=== PATIENT | male | born 1980 | race Two or more races ===

== ENCOUNTER 2018-11-07 04:22 | Emergency (ER) | payer SELFPAY | END 2018-11-07 04:25 | disposition left against medical advice (07) | LOC: ER 04:22 | DX: Z02.89 Encounter for other administrative examinations (principal); Z53.21 Procedure and treatment not carried out due to patient leaving prior to being seen by health care provider ==

== ENCOUNTER 2020-11-22 11:14 | Emergency (ER) | payer OTHER ==
[~2020-11-22] VITALS: Ht 182.9 cm; Wt 106.6 kg
[2020-11-22] MEDS ORDERED: HYDROcodone-ACET 5/325MG TAB PO ONE (12:30)
[2020-11-22 13:15] LABS: Basophils # (auto) 0 10 ^3/uL (0-0.2); Basophils % (auto) 0.3 % (0.0-2.0); Eosinophils # (auto) 0.2 10 ^3/uL (0-0.8); Eosinophils % (auto) 1.3 % (0.0-7.0); Hematocrit 49.2 % (41.0-53.0); Hemoglobin 16.7 g/dL (13.5-17.5); Lymphocytes # (auto) 1.6 10 ^3/uL (0.4-5.4); Lymphocytes % (auto) 11.4 % (10.0-50.0); Mean Corpuscular Hemoglobin 29.6 pg (28.0-32.0); Monocytes # (auto) 0.9 10 ^3/uL (0-1.3); Monocytes % (auto) 6.7 % (0.0-12.0); Neutrophils # (auto) 11.2 10 ^3/uL (1.6-8.6); Neutrophils % (auto) 80.3 % (37.0-80.0); Nucleated Red Blood Cells % 0.3 %; Red Blood Cells 5.65 10^6/uL (4.5-5.90); Red Cell Distribution Width 13.3 % (11.8-14.3)
[2020-11-22 14:19] LABS: BUN/Creatinine Ratio 13.3; Calcium 8.7 mg/dL (8.5-10.1); Potassium 3.7 mmol/L (3.5-5.1)
[2020-11-22 17:40] VITALS: BP 138/78
== END 2020-11-22 17:42 | disposition home or self-care (01) ==
LOC: ER 11:14 → EDBD 11:14 → ER 17:42
DX: R07.89 Other chest pain (principal); M54.5 Low back pain; M79.605 Pain in left leg; R06.02 Shortness of breath; V43.52XA Car driver injured in collision with other type car in traffic accident, initial encounter; Y93.I9 Activity, other involving external motion; Y92.89 Other specified places as the place of occurrence of the external cause; Y99.8 Other external cause status
CPT/HCPCS: 36415; 71045; 72100; 72170; 80048; 80320; 85025; 86850; 86900; 86901; 93005